=== PATIENT | female | born 2000 | race African-American/Black ===

== ENCOUNTER 2021-12-08 17:55 | Emergency (ER) | payer BC, SELFPAY ==
[2021-12-08 18:04] VITALS: BP 122/73; PULSE 63; RESP 16; TEMP 37.7; O2SAT 100
--- NOTE | 2021-12-08 18:04 | ED.URI ---
HPI - URI/Sore Throat General Chief Complaint: Upper Respiratory Infection Stated Complaint: shortness of breath, cough Time Seen by Provider: 12/08/21 18:08 Source: patient and RN notes reviewed Mode of arrival: ambulatory Limitations: no limitations History of Present Illness HPI Narrative: 21-year-old female with history of asthma presents with concern for cough, feeling of inflammation in her airway. She reports over the last several days she has been using her albuterol inhaler more frequently and today she began to cough and have the sensation in her airway. She denies nasal congestion, rhinorrhea, sore throat, ear pain, fever. She reports she has a history of allergies and takes Singulair and Zyrtec. Reports she feels like her allergies are not well controlled at this time. MD elicited complaint: cough Related Data Home Medications Medication Instructions Recorded Confirmed albuterol sulfate 90 mcg/actuation inh inhalation 12/08/21 aerosol inhaler Allergies Allergy/AdvReac Type Severity Reaction Status Date / Time No Known Allergies Allergy Verified 12/08/21 18:07 Review of Systems Review of Systems: CONSTITUTIONAL: Denies malaise, chills, sweats, or fever. EYES: Denies visual changes, redness, or discharge. ENT: Denies rhinorrhea, congestion, sinus pain, otalgia and sore throat. CARDIOVASCULAR: Denies chest pain, palpitations, or edema. RESPIRATORY: Reports cough. Denies dyspnea. GASTROINTESTINAL: Denies abdominal pain, nausea, vomiting, diarrhea SKIN: Denies rash or itching. MUSCULOSKELETAL: Denies myalgia. NEUROLOGIC: Denies headache. All systems reviewed & are unremarkable except as noted in HPI and below PMFSH Comments At time of signature, agree with nursing past medical, surgical, social and family history. There is no relevant family history pertinent to the presenting complaint Exam Narrative: GENERAL: Well-appearing, well-nourished, and in no acute distress. HEAD: Normocephalic EYES: PERRLA, conjunctivae clear ENT: Nares clear. Mucous membranes moist. TM pearly faria with sharp light reflex bilaterally; no tragal tenderness. Oropharynx not erythematous without lesions. Tonsils not enlarged and without exudate, no drooling, no hoarseness, no trismus, uvula midline. NECK: Supple. No lymphadenopathy CHEST: Clear to auscultation, breath sounds equal. Aeration fair. No wheezing, rhonchi, rales, or stridor. No respiratory distress, speaks in full sentences. HEART: Regular rate and rhythm. No murmur heard. SKIN: Warm, dry, no rash. NEURO: Alert and oriented x3. PSYCH: Normal mood and affect Course Course Emergency Course: Patient is aware of diagnosis, understands and agrees to treatment plan. Anticipatory guidance given. Patient agrees to follow-up as directed and is aware of reasons to seek care at the emergency department. Portions of this record may have been created with voice recognition software Level of Care: Express Care Visit Reevaluation(s) Reevaluation #1: Patient reports feeling inflammation in her airway has improved. Aeration overall improved Date: 12/08/21 Time: 18:42 Vital Signs Vital signs: Reviewed. MDM - URI/Sore Throat MDM Narrative Medical decision making narrative: Differential diagnosis considered: Borrero virus, strep pharyngitis, allergic rhinitis, upper respiratory tract infection, sinusitis, rhinosinusitis, nasopharyngitis. viral pharyngitis, otitis media, otitis externa, pneumonia, bronchitis, viral cough syndrome, viral syndrome, and influenza. Exam findings show no acute concerns or changes; patient is non-toxic appearing and is in no distress. Patient is appropriate for outpatient treatment and follow-up. Lab Data Attestation: I reviewed the patient's lab results. Critical Care Time Critical Care Time Critical Care Time: No Discharge Plan Discharge Clinical Impression: Asthma attack Patient Disposition: Home, Self-Care Condition: Stable
[2021-12-08 18:08] VITALS: BP 122/73; PULSE 63; RESP 16; TEMP 37.7; O2SAT 100
[2021-12-08] MEDS: IPRATROPIUM BR 0.02% INH SOLN 0.5 MG/2.5 ML VIAL INHALATION (18:23)
[2021-12-08] MEDS: ALBUTEROL SULFATE NEB 2.5 MG/3 ML INH INHALATION (18:23)
[2021-12-08 18:37] VITALS: PULSE 64; RESP 16; O2SAT 100
== END 2021-12-08 18:49 | disposition home or self-care (01) ==
PROVIDERS: Emergency Provider Nurse Practitioner
DX: J45.909 Unspecified asthma, uncomplicated (principal)
CPT/HCPCS: 94640; 99213; G0463

== ENCOUNTER 2022-08-24 12:48 | Emergency (ER) | payer BC, SELFPAY ==
[2022-08-24 12:56] VITALS: BP 122/71; PULSE 93; RESP 16; TEMP 37.3; O2SAT 99
--- NOTE | 2022-08-24 13:05 | ED.BACK ---
HPI - Back Pain/Injury General Chief Complaint: Back Pain/Injury Stated Complaint: Back Pain Time Seen by Provider: 08/24/22 13:05 Source: patient Mode of arrival: ambulatory Limitations: no limitations History of Present Illness HPI Narrative: 22-year-old female presenting for complaint of pain across the lower back. Onset this morning. Denies injury or overuse. patient has history of scoliosis with a spinal fusion 2011. Endorses occasional back spasms but states they are usually to the upper back. She has muscle relaxers but did not take today. She took ibuprofen this morning. Rates pain 10/10, constant, stabbing/throbbing. Nothing improves the pain. She denies numbness, tingling, weakness of the lower extremities, radiating pain to the legs, saddle paresthesia or loss of bowel or bladder control. Denies abdominal pain, flank pain, urinary complaints, n/v/d/f/c. LMP on Depo. Related Data Home Medications Medication Instructions Recorded Confirmed medroxyprogesterone 150 mg/mL 150 mg IM [id number] 08/24/22 08/24/22 intramuscular syringe Allergies Allergy/AdvReac Type Severity Reaction Status Date / Time No Known Allergies Allergy Verified 08/24/22 12:55 Review of Systems Review of Systems: CONSTITUTIONAL: Denies body aches, fever, chills EYES: Denies visual changes CARDIOVASCULAR: Denies chest pain, palpitations, or edema. RESPIRATORY: Denies cough or dyspnea. GASTROINTESTINAL: Denies abdominal pain, nausea, vomiting, or diarrhea. SKIN: Denies rash, itching, or wounds. MUSCULOSKELETAL: reports back pain NEUROLOGIC: Denies headache, numbness, tingling, or weakness. All systems reviewed & are unremarkable except as noted in HPI and below PMFSH Past Medical History Medical History (Updated 08/24/22 @ 13:32 by Rebecca Rai, HARDWARE DEVELOPER) Scoliosis Comments At time of signature, I have reviewed and agree with nursing past medical, surgical, social and family history unless otherwise noted. Please see nursing chart for further information. There is no relevant family history pertinent to the presenting complaint Exam Narrative: GENERAL: Appears in pain, in no acute distress. HEAD: Normocephalic, atraumatic. EYES: conjunctivae clear NECK: Supple. full ROM CHEST: Speaks in full sentences. No respiratory distress. HEART: Regular rate and rhythm. Normal and equal peripheral pulses. MUSC: No Vertebral point tenderness. L4 paraspinal pain extending to both sides; tender with palpation. BLEs with normal strength and sensation, normal range of motion, endorses pain with movement. No open wounds or obvious deformity; alignment normal, pulse palpable and equal bilaterally, skin warm, dry, pink. Capillary refill less than 3 seconds. Gait steady. SKIN: Warm, dry, no rash. Scar to lumbar spine. NEURO: Alert and oriented x3. Course Course Emergency Course: Patient is aware of diagnosis, understands and agrees to treatment plan. Anticipatory guidance given. Patient agrees to follow-up as directed and is aware of reasons to seek care at the emergency department. Portions of this record may have been created with voice recognition software Level of Care: Express Care Visit Vital Signs Vital signs: Vital Signs Temperature 99.1 F 08/24/22 12:56 Pulse Rate 93 08/24/22 12:56 Respiratory Rate 16 08/24/22 12:56 Blood Pressure 122/71 08/24/22 12:56 Pulse Oximetry 99 08/24/22 12:56 Oxygen Delivery Room Air 08/24/22 12:56 Temperature 99.1 F 08/24/22 12:56 Pulse Rate 93 08/24/22 12:56 Respiratory Rate 16 08/24/22 12:56 Blood Pressure 122/71 08/24/22 12:56 Pulse Oximetry 99 08/24/22 12:56 Oxygen Delivery Room Air 08/24/22 12:56 Reviewed MDM - Back Pain/Injury MDM Narrative Medical decision making narrative: Imaging not performed as pt denies injury. IM Depomedrol given. Patient has muscle relaxer at home. No acute abdominal complaints or findings on PE, urine unremarkabl
[2022-08-24] MEDS: methylPREDNISolone ACETATE 80 MG/ML VIAL IM (13:35)
== END 2022-08-24 13:56 | disposition home or self-care (01) ==
PROVIDERS: Emergency Provider Nurse Practitioner Family
DX: M54.50 Low back pain, unspecified (principal); M41.9 Scoliosis, unspecified
CPT/HCPCS: 81003; 96372; 99213; G0463; J1040

== ENCOUNTER → 2022-12-14 14:06 | Outpatient (CLI) | payer BC, SELFPAY ==
--- NOTE | ~2022-12-14 | US_ITS ---
EXAMINATION: US transvaginal DATE: 12/14/2022 14:26 INDICATION: Other specified abnormal uterine and vaginal bleeding. TECHNIQUE: Multiple transvaginal sonographic images of the pelvis were obtained. COMPARISON: None. FINDINGS: The uterus measures 5.2 x 3.1 x 3.7 cm. There is no free fluid in the pelvis. The endometrial complex measures 5 mm in thickness. The right ovary measures 2.3 x 1.4 x 1.7 cm. The left ovary measures 3.3 x 2.0 x 1.8 cm. There is normal vascular flow in the ovaries. IMPRESSION: 1. Normal pelvis. Reviewed, dictated and finalized at location A. IMPRESSION: 1. Normal pelvis.
== END ==
PROVIDERS: PCP Nurse Practitioner; Visit Provider Nurse Practitioner
DX: N93.8 Other specified abnormal uterine and vaginal bleeding (principal)
CPT/HCPCS: 76830